=== PATIENT | female | born 1970 | race American Indian/Alaskan Native ===

== ENCOUNTER 2019-02-06 16:01 | Emergency (ER) | payer OTHER ==
[2019-02-06] MEDS ORDERED: DECADRON IM ONE (16:10)
--- NOTE | 2019-02-06 16:10 | Emergency Department Report ---
Blank Doc - Documentation Documentation: This is a 48-year-old female that presents with SOB and wheezing. This initial assessment/diagnostic orders/clinical plan/treatment(s) is/are subject to change based on patient's health status, clinical progression and re- assessment by fellow clinical providers in the ED. Further treatment and workup at subsequent clinical providers discretion. Patient/guardians urged not to elope from the ED as their condition may be serious if not clinically assessed and managed. Initial orders include: 1- Patient sent to [facility] for further evaluation and treatment 2- breathing treatment/steroids
[2019-02-06] MEDS ORDERED: ATROVENT IH ONE (16:11)
[2019-02-06] MEDS ORDERED: PROVENTIL IH ONE (16:11)
[2019-02-06] MEDS ORDERED: DELTASONE PO ONE (16:16)
[2019-02-06] MEDS ORDERED: ZOFRAN ODT PO ONE (16:17)
[2019-02-06] MEDS ORDERED: VIBRAMYCIN PO ONE (16:17)
[2019-02-06] MEDS ORDERED: MAGNESIUM SULFATE 2GM/50ML 2 GM/50 ML BAG IV ONE (16:20)
--- NOTE | 2019-02-06 16:21 | Emergency Department Report ---
Minor Respiratory - HPI Chief Complaint: Dyspnea/Respdistress Stated Complaint: DIFFICULTY BREATHING Time Seen by Provider: 02/06/19 16:09 Duration: 5 Days Pain Location: Chest Severity: moderate Minor Respiratory: Yes Able to Tolerate Fluids, Yes Cough, Yes Shortness of Breath, No Rhinorrhea, No Sore Throat, No Ear Pain, No Sick Contacts, No Hemoptysis, No Chest Pain, No Fever Other History: Patient is a pleasant 41-year-old comes to the ER today with shortness of breath. She has asthma and his round of her medications. Patient is afebrile. Oxygen saturation is normal on room air. She denies purulent sputum. ED Review of Systems ROS: Stated complaint: DIFFICULTY BREATHING Other details as noted in HPI Comment: All other systems reviewed and negative ED Past Medical Hx - Past Medical History Hx Asthma: Yes Additional medical history: fibromyalgia - Surgical History Past Surgical History?: Yes Additional Surgical History: back - Family History Family history: no significant - Social History Smoking Status: Former Smoker Substance Use Type: None - Medications Home Medications: Home Medications Medication Instructions Recorded Confirmed Last Taken Type ALBUTEROL NEB's [Proventil 0.083% 2.5 mg IH TID PRN #1 box 02/06/19 Unknown Rx NEBS] Albuterol Sulfate [Proair 90 mcg IH Q4HR PRN #2 aer.pow.ba 02/06/19 Unknown Rx Respiclick] Azithromycin [Zithromax Z-RUPINDER] 250 mg PO DAILY #6 tablet 02/06/19 Unknown Rx Cetirizine HCl [ZyrTEC] 10 mg PO DAILY #30 capsule 02/06/19 Unknown Rx Fluticasone [Flonase] 1 spray NS QDAY #1 bottle 02/06/19 Unknown Rx Fluticasone/Salmeterol [Advair 1 puff IH BID #1 disk.w.dev 02/06/19 Unknown Rx Diskus 250-50 mcg] predniSONE [Deltasone] 20 mg PO DAILY #5 tablet 02/06/19 Unknown Rx Minor Respiratory Exam - Exam General: Vital signs noted. No distress. Alert and acting appropriately. WDWN patient in NAD VS per RN flow sheet Alert and oriented to person, place and time. S1-S2. No S3 or S4. No systolic or diastolic murmur. No JVD. No pitting edema. WHEEZING BILATERAL ON ADMIT TO [facility] Abdomen soft nontender bowel sounds X4 Moves all extremities well. Mood and affect appropriate. Neurologic: Alert and oriented, no deficits. Musculoskeletal: Unremarkable. ED Course Vital Signs 02/06/19 16:10 Temperature 98.2 F Pulse Rate 93 H Respiratory 22 Rate Blood Pressure 147/89 O2 Sat by Pulse 96 Oximetry ED Medical Decision Making - Medical Decision Making Vital Signs 02/06/19 02/06/19 02/06/19 16:10 16:30 16:43 Temperature 98.2 F Pulse Rate 93 H Pulse Rate [ 90 94 H Bilateral Upper Lobe] Respiratory 22 Rate Respiratory 20 20 Rate [Bilateral Upper Lobe] Blood Pressure 147/89 O2 Sat by Pulse 96 Oximetry ambulatory, no fever, no sputum; ran out of meds no cp sob with wheezing hx asthma. medicated in the ER with improvement dc home with dc plan of care and rx. Pt is to follow up with pcp. dc home without sob or wheezing. - Differential Diagnosis asthma, ae with or without infection Critical care attestation.: If time is entered above; I have spent that time in minutes in the direct care of this critically ill patient, excluding procedure time. ED Disposition Clinical Impression: Asthma with acute exacerbation, URTI (acute upper respiratory infection) Disposition: DC-01 TO HOME OR SELFCARE Is pt being admited?: No Does the pt Need Aspirin: No Condition: Stable Instructions: Asthma (ED) Additional Instructions: DIET TOLERATED MEDS ORDERED TODAY IN ER FOLLOW INSTRUCTIONS ON THE BOTTLE FOLLOW UP PCP WITHIN 48 HOURS TO ENSURE YOU ARE GETTING BETTER ACTIVITY TOLERATED MOTRIN OR TYLENOL FOR PAIN OR FEVER RETURN TO THE ER FOR WORSENING SYMPTOMS NOT RELIEVED BY YOUR MEDICATIONS. Prescriptions: Fluticasone/Salmeterol [Advair Diskus 250-50 mcg] 1 puff IH BID #1 disk.w.dev predniSONE [Deltasone] 20 mg PO DAILY #5 tablet Fluticasone [Flonase] 1 spray NS QDAY #1 bottle Albuterol Sulfate [Proair Respiclick] 90 mcg IH Q4HR PRN #2 aer.pow.ba PRN Reason: Wheezing ALBUTEROL NEB's [Proventil 0.083% NEBS] 2.5 mg IH TID PRN #1 box PRN Reason: Wheezing Azithromycin [Zithromax Z-RUPINDER] 250 mg PO DAILY #6 tablet Cetirizine HCl [ZyrTEC] 10 mg PO DAILY #30 capsule Referrals: MAUREEN COX MD [Primary Care Provider] - 3-5 Days PERLA WILLIAM MD [Staff Physician] - 3-5 Days Time of Disposition: 17:19
[2019-02-06] MEDS ORDERED: SOLU-Medrol IV ONE (17:13)
[2019-02-06 18:56] VITALS: BP 144/72
== END 2019-02-06 18:56 | disposition home or self-care (01) ==
LOC: ED 16:01
DX: J45.901 Unspecified asthma with (acute) exacerbation (principal); J06.9 Acute upper respiratory infection, unspecified; M79.7 Fibromyalgia; Z87.891 Personal history of nicotine dependence
CPT/HCPCS: 94640; 96365; 96375; 99283; J2930; J3475

== ENCOUNTER 2019-02-10 12:56 | Emergency (ER) | payer OTHER ==
[2019-02-10] MEDS ORDERED: ATROVENT IH ONE ×2 (13:05→13:28)
[2019-02-10] MEDS ORDERED: PROVENTIL IH ONE ×2 (13:05→13:28)
[2019-02-10] MEDS ORDERED: DECADRON IM ONE (13:05)
--- NOTE | 2019-02-10 13:07 | Event Note ---
ED Screening Note ED Screening Note: c/o asthma exacerbation does not have rescue medication no productive cough, no fever just having wheezing per pt hx of HTN, is supposed to be on "water pill" has not been taking This initial assessment/diagnostic orders/clinical plan/treatment(s) is/are subject to change based on patients health status, clinical progression and re- assessment by fellow clinical providers in the ED. Further treatment and workup at subsequent clinical providers discretion. Patient/guardian urged not to elope from the ED as their condition may be serious if not clinically assessed and managed. Initial orders include: neb tx, steroids
[2019-02-10] MEDS ORDERED: MORPHINE IV ONE (13:28)
[2019-02-10] MEDS ORDERED: DECADRON IV ONE (13:29)
[2019-02-10 14:37] LABS: BUN/Creatinine Ratio 14; Blood Urea Nitrogen 11 mg/dL (7-17); Calcium 9.1 mg/dL (8.4-10.2); Hemolysis Index 20
[2019-02-10 14:39] LABS: Basophils # (Auto) 0.1 K/mm3 (0.0-0.1); Basophils % (Auto) 0.5 % (0.0-1.8); Eosinophils # (Auto) 0.2 K/mm3 (0.0-0.4); Eosinophils % (Auto) 1.6 % (0.0-4.3); Hematocrit 41.8 % (30.3-42.9); Hemoglobin 14.3 gm/dl (10.1-14.3); Lymphocytes # (Auto) 1.5 K/mm3 (1.2-5.4); Lymphocytes % (Auto) 15.4 % (13.4-35.0); Mean Corpuscular HGB Conc 34 % (30-34); Mean Corpuscular Volume 90 fl (79-97); Monocytes # (Auto) 0.2 K/mm3 (0.0-0.8); Monocytes % (Auto) 1.8 % (0.0-7.3); Platelet Count 232 K/mm3 (140-440); Red Blood Count 4.63 M/mm3 (3.65-5.03); Red Cell Distribution Width 14.4 % (13.2-15.2)
--- NOTE | 2019-02-10 17:27 | Emergency Department Report ---
<SHANAEANDRES - Last Filed: 02/10/19 17:23> ED Asthma HPI - General Chief Complaint: Adult Asthma Stated Complaint: MAYELA Time Seen by Provider: 02/10/19 13:06 Source: patient Mode of arrival: Ambulatory Limitations: No Limitations - History of Present Illness Initial Comments: Patient is a 48-year-old [place] female who has been having asthma exacerbation for the last several days. Patient is here for 5 days ago and was given neb treatment and steroids and the patient states that her symptoms are not improved. She has continued to wheeze at home and now has pain with breathing which she normally does not have with her asthma exacerbations. Patient states that she continued to have a cough is nonproductive as well as wheezing shortness of breath. Has sob worse with exertion - Related Data Previous Rx's Medication Instructions Recorded Last Taken Type ALBUTEROL NEB's [Proventil 0.083% 2.5 mg IH TID PRN #1 box 02/06/19 Unknown Rx NEBS] Albuterol Sulfate [Proair 90 mcg IH Q4HR PRN #2 aer.pow.ba 02/06/19 Unknown Rx Respiclick] Azithromycin [Zithromax Z-RUPINDER] 250 mg PO DAILY #6 tablet 02/06/19 Unknown Rx Cetirizine HCl [ZyrTEC] 10 mg PO DAILY #30 capsule 02/06/19 Unknown Rx Fluticasone [Flonase] 1 spray NS QDAY #1 bottle 02/06/19 Unknown Rx Fluticasone/Salmeterol [Advair 1 puff IH BID #1 disk.w.dev 02/06/19 Unknown Rx Diskus 250-50 mcg] predniSONE [Deltasone] 20 mg PO DAILY #5 tablet 02/06/19 Unknown Rx ALBUTEROL NEB's [Proventil 0.083% 5 mg IH TID PRN #20 neb 02/10/19 Unknown Rx NEBS] Benzonatate [Tessalon Perles] 100 mg PO Q8HR #10 capsule 02/10/19 Unknown Rx traMADol [Ultram] 50 mg PO Q6HR PRN #12 tablet 02/10/19 Unknown Rx Allergies Allergy/AdvReac Type Severity Reaction Status Date / Time No Known Allergies Allergy Verified 02/06/19 16:03 ED Review of Systems Comment: All other systems reviewed and negative ED Past Medical Hx - Past Medical History Previous Medical History?: Yes Hx Asthma: Yes Additional medical history: fibromyalgia - Surgical History Past Surgical History?: Yes Additional Surgical History: back - Social History Smoking Status: Former Smoker Substance Use Type: Alcohol - Medications Home Medications: Home Medications Medication Instructions Recorded Confirmed Last Taken Type ALBUTEROL NEB's [Proventil 0.083% 2.5 mg IH TID PRN #1 box 02/06/19 Unknown Rx NEBS] Albuterol Sulfate [Proair 90 mcg IH Q4HR PRN #2 aer.pow.ba 02/06/19 Unknown Rx Respiclick] Azithromycin [Zithromax Z-RUPINDER] 250 mg PO DAILY #6 tablet 02/06/19 Unknown Rx Cetirizine HCl [ZyrTEC] 10 mg PO DAILY #30 capsule 02/06/19 Unknown Rx Fluticasone [Flonase] 1 spray NS QDAY #1 bottle 02/06/19 Unknown Rx Fluticasone/Salmeterol [Advair 1 puff IH BID #1 disk.w.dev 02/06/19 Unknown Rx Diskus 250-50 mcg] predniSONE [Deltasone] 20 mg PO DAILY #5 tablet 02/06/19 Unknown Rx ALBUTEROL NEB's [Proventil 0.083% 5 mg IH TID PRN #20 neb 02/10/19 Unknown Rx NEBS] Benzonatate [Tessalon Perles] 100 mg PO Q8HR #10 capsule 02/10/19 Unknown Rx traMADol [Ultram] 50 mg PO Q6HR PRN #12 tablet 02/10/19 Unknown Rx ED Physical Exam - General Limitations: No Limitations General appearance: alert, in no apparent distress - Head Head exam: Present: atraumatic, normocephalic - Eye Eye exam: Present: normal appearance, PERRL, EOMI - ENT ENT exam: Present: mucous membranes moist - Neck Neck exam: Present: normal inspection - Respiratory Respiratory exam: Present: respiratory distress, wheezes. Absent: normal lung sounds bilaterally, rales, rhonchi, stridor - Cardiovascular Cardiovascular Exam: Present: normal rhythm, tachycardia, normal heart sounds. Absent: systolic murmur, diastolic murmur, rubs, gallop - GI/Abdominal GI/Abdominal exam: Present: soft, normal bowel sounds. Absent: distended, tenderness, guarding, rebound - Extremities Exam Extremities exam: Present: normal inspection - Back Exam Back exam: Present: normal inspection - Neurological Exam Neurological exam: Present: alert, oriented X3 - Psychiatric Psychiatric exam: Present: normal affect, normal mood - Skin Skin exam: Present: warm, dry, intact, normal color. Absent: rash ED Course - Reevaluation(s) Reevaluation #1: 02/10/19 17:25 Patient had a CTA of the chest ordered to rule out pulmonary embolus as the patient has pain with breathing. Patient's risk factor for PE is smoking. Patient also has a change in her asthma pattern and no relief with her usual treatment. Patient is received hour-long neb treatment is feeling much improved. Her wheezing has improved. Did have a good conversation with the patient regarding the use of neck was machine at home. Patient feels as though she would benefit from this more than her albuterol MDI. If the patient's CT is negative the patient will be discharged home with a nebulizer machine. ED Medical Decision Making - Lab Data Result diagrams: 02/10/19 13:51 02/10/19 13:51 ED Disposition Clinical Impression: URTI (acute upper respiratory infection) Asthma with acute exacerbation Qualifiers: Asthma severity: moderate Asthma persistence: persistent Qualified Code(s): J45.41 - Moderate persistent asthma with (acute) exacerbation Disposition: - TO HOME OR SELFCARE Condition: Stable Instructions: Asthma (ED) Prescriptions: ALBUTEROL NEB's [Proventil 0.083% NEBS] 5 mg IH TID PRN #20 neb PRN Reason: Wheezing Benzonatate [Tessalon Perles] 100 mg PO Q8HR #10 capsule traMADol [Ultram] 50 mg PO Q6HR PRN #12 tablet PRN Reason: Pain Referrals: FLOR SANTIAGO JR, MD [Primary Care Provider] - 3-5 Days <LUIS ALFREDO BURRELL - Last Filed: 02/13/19 06:10> ED Review of Systems ROS: Stated complaint: MAYELA Other details as noted in HPI ED Course Vital Signs 02/10/19 02/10/19 02/10/19 13:00 13:18 13:32 Temperature 98 F Pulse Rate 103 H Pulse Rate [ 122 H 123 H Anterior Bilateral Throughout] Respiratory 22 Rate Respiratory 24 24 Rate [Anterior Bilateral Throughout] Blood Pressure 169/114 Blood Pressure [Right] O2 Sat by Pulse 95 Oximetry 02/10/19 02/10/19 02/10/19 13:34 14:06 18:48 Temperature 98.6 F Pulse Rate 72 Pulse Rate [ 126 H Anterior Bilateral Throughout] Respiratory 20 18 Rate Respiratory 24 Rate [Anterior Bilateral Throughout] Blood Pressure Blood Pressure 154/82 [Right] O2 Sat by Pulse Oximetry 02/10/19 18:49 Temperature 97.8 F Pulse Rate 76 Pulse Rate [ Anterior Bilateral Throughout] Respiratory 18 Rate Respiratory Rate [Anterior Bilateral Throughout] Blood Pressure Blood Pressure 154/82 [Right] O2 Sat by Pulse Oximetry ED Medical Decision Making - Lab Data Result diagrams: 02/10/19 13:51 02/10/19 13:51 - Radiology Data Findings [facility] [address] [place] [address] Cat Scan Report Signed Patient: AYAZ RILEY MR#: [id number] 9 : 1970 Acct:[id number] Age/Sex: 48 / F ADM Date: 02/10/19 Loc: ED Attending Dr: Ordering Physician: ANDRES CASTELLON MD Date of Service: 02/10/19 Procedure(s): CT angio chest Accession Number(s): [id number] cc: ANDRES CASTELLON MD PROCEDURE: CT ANGIO CHEST TECHNIQUE: Computerized tomographic angiography of the chest was performed after the IV injection of iodinated nonionic contrast including image processing. The image data was postprocessed using 2-dimensional multiplanar reformatted (MPR) and 3-dimensional (MIP and/or volume rendered) techniques. Automated exposure control, adjustment of mA and/or kV according to patient size, or iterative reconstruction dose optimization techniques were utilized. CT DOSE LENGTH PRODUCT: 688.2 mGycm HISTORY: acute respiratory distress with pleuritic CP COMPARISONS: None . FINDINGS: Heart and pericardium: Normal. Thoracic aorta: Normal. Pulmonary vasculature: There is suboptimal evaluation of the pulmonary arteries due to phase of contrast-enhancement. No central emboli are seen. Lymph nodes: No enlarged thoracic lymph nodes. Lungs: Normal. Pleural space: No effusion, thickening, or pneumothorax. Musculoskeletal structures: No significant abnormality. Upper abdominal structures: No significant abnormality. IMPRESSION: There is suboptimal evaluation of the pulmonary arteries due to phase of contrast- enhancement. No central emboli are seen. This document is electronically signed by Sara Harris MD., February 10 2019 05:52:32 PM ET Transcribed By: [facility] Dictated By: SARA HARRIS M.D. Electronically Authenticated By: SARA HARRIS M.D. Signed Date/Time: 02/10/19 175 DD/ 16 TD/TT: 02/10/191717 - Medical Decision Making 48-year-old female seen by Dr. Castellon for asthma with socially chest pain was worried about other etiologies for chest pain, so CT of the chest was ordered to rule out any clots. CTA did not reveal any pulmonary emboli. Prescriptions already made out plan was to discharge patient home. Have her to follow-up. We will move forward with his initial plan of care was negative as previously discussed. See the radiology report for more details. Critical care attestation.: If time is entered above; I have spent that time in minutes in the direct care of this critically ill patient, excluding procedure time. ED Disposition Is pt being admited?: No Does the pt Need Aspirin: No
--- NOTE | 2019-02-10 17:54 | Cat Scan Report ---
PROCEDURE: CT ANGIO CHEST TECHNIQUE: Computerized tomographic angiography of the chest was performed after the IV injection of iodinated nonionic contrast including image processing. The image data was postprocessed using 2-di mensional multiplanar reformatted (MPR) and 3-dimensional (MIP and/or volume rendered) techniques. Au tomated exposure control, adjustment of mA and/or kV according to patient size, or iterative reconstr uction dose optimization techniques were utilized. CT DOSE LENGTH PRODUCT: 688.2 mGycm HISTORY: acute respiratory distress with pleuritic CP COMPARISONS: None . FINDINGS: Heart and pericardium: Normal. Thoracic aorta: Normal. Pulmonary vasculature: There is suboptimal evaluation of the pulmonary arteries due to phase of contr ast-enhancement. No central emboli are seen. Lymph nodes: No enlarged thoracic lymph nodes. Lungs: Normal. Pleural space: No effusion, thickening, or pneumothorax. Musculoskeletal structures: No significant abnormality. Upper abdominal structures: No significant abnormality. IMPRESSION: There is suboptimal evaluation of the pulmonary arteries due to phase of contrast-enhanc ement. No central emboli are seen. This document is electronically signed by Sara Harris MD., February 10 2019 05:52:32 PM ET
[2019-02-10 18:49] VITALS: BP 154/82
== END 2019-02-10 18:49 | disposition home or self-care (01) ==
LOC: ED 12:56
DX: J06.9 Acute upper respiratory infection, unspecified (principal); J45.901 Unspecified asthma with (acute) exacerbation; Z98.890 Other specified postprocedural states; Z87.891 Personal history of nicotine dependence; Z87.39 Personal history of other diseases of the musculoskeletal system and connective tissue
CPT/HCPCS: 36415; 71275; 80048; 85025; 94640; 96374; 96375; 99284; J1100; J2270; Q9967

== ENCOUNTER 2019-03-20 18:36 | Emergency (ER) | payer OTHER ==
[2019-03-20] MEDS ORDERED: DECADRON IV ONE (18:49)
--- NOTE | 2019-03-20 18:51 | Emergency Department Report ---
ED Asthma HPI - General Chief Complaint: Adult Asthma Stated Complaint: ASTHMA Source: patient Mode of arrival: Ambulatory Limitations: No Limitations - History of Present Illness Initial Comments: 48-year-old female with a history of asthma presents to ED complaining of the maximum assist patient does started 3 days ago. Patient states her medications are not working so she came to the ED today to be evaluated due to the fact that she is having some pain with coughing. Patient states that she has not had a chance to follow up with the specialist yet. MD Complaint: "asthma attack" Asthma History: childhood onset Severity: moderate Context: exercise Associated Symptoms: dry cough - Related Data Home Medications Medication Instructions Recorded Confirmed Last Taken Buspirone HCl [busPIRone] 15 mg PO QDAY 03/20/19 03/20/19 03/20/19 Omeprazole 40 mg PO QDAY 03/20/19 03/20/19 03/19/19 Previous Rx's Medication Instructions Recorded Last Taken Type Albuterol Sulfate [Proair 90 mcg IH Q4HR PRN #2 aer.pow.ba 02/06/19 03/20/19 Rx Respiclick] Cetirizine HCl [ZyrTEC] 10 mg PO DAILY #30 capsule 02/06/19 03/20/19 Rx Fluticasone [Flonase] 1 spray NS QDAY #1 bottle 02/06/19 03/20/19 Rx ALBUTEROL NEB's [Proventil 0.083% 5 mg IH TID PRN #20 neb 02/10/19 03/20/19 Rx NEBS] traMADol [Ultram] 50 mg PO Q6HR PRN #12 tablet 02/10/19 03/20/19 Rx ALBUTEROL NEB's [Proventil 0.083% 2.5 mg IH TID PRN #1 box 03/20/19 Unknown Rx NEBS] Acetamin/Codeine 120-12Mg/5 ml 5 ml PO TID #60 ml 03/20/19 Unknown Rx [Tylenol/Codeine 120-12 mg/5 ml] Benzonatate [Tessalon Perles] 100 mg PO Q8HR #10 capsule 03/20/19 Unknown Rx Fluticasone/Salmeterol [Advair 1 puff IH BID #1 disk.w.dev 03/20/19 Unknown Rx Diskus 250-50 mcg] predniSONE [Deltasone] 20 mg PO DAILY #5 tablet 03/20/19 Unknown Rx Allergies Allergy/AdvReac Type Severity Reaction Status Date / Time No Known Allergies Allergy Verified 02/06/19 16:03 ED Review of Systems ROS: Stated complaint: ASTHMA Other details as noted in HPI Comment: All other systems reviewed and negative ED Past Medical Hx - Past Medical History Previous Medical History?: Yes Hx Asthma: Yes Additional medical history: fibromyalgia - Surgical History Past Surgical History?: Yes Additional Surgical History: back - Social History Smoking Status: Former Smoker Substance Use Type: Alcohol - Medications Home Medications: Home Medications Medication Instructions Recorded Confirmed Last Taken Type Albuterol Sulfate [Proair 90 mcg IH Q4HR PRN #2 aer.pow.ba 02/06/19 03/20/19 03/20/19 Rx Respiclick] Cetirizine HCl [ZyrTEC] 10 mg PO DAILY #30 capsule 02/06/19 03/20/19 03/20/19 Rx Fluticasone [Flonase] 1 spray NS QDAY #1 bottle 02/06/19 03/20/19 03/20/19 Rx ALBUTEROL NEB's [Proventil 0.083% 5 mg IH TID PRN #20 neb 02/10/19 03/20/19 03/20/19 Rx NEBS] traMADol [Ultram] 50 mg PO Q6HR PRN #12 tablet 02/10/19 03/20/19 03/20/19 Rx ALBUTEROL NEB's [Proventil 0.083% 2.5 mg IH TID PRN #1 box 03/20/19 Unknown Rx NEBS] Acetamin/Codeine 120-12Mg/5 ml 5 ml PO TID #60 ml 03/20/19 Unknown Rx [Tylenol/Codeine 120-12 mg/5 ml] Benzonatate [Tessalon Perles] 100 mg PO Q8HR #10 capsule 03/20/19 Unknown Rx Buspirone HCl [busPIRone] 15 mg PO QDAY 03/20/19 03/20/19 03/20/19 History Fluticasone/Salmeterol [Advair 1 puff IH BID #1 disk.w.dev 03/20/19 Unknown Rx Diskus 250-50 mcg] Omeprazole 40 mg PO QDAY 03/20/19 03/20/19 03/19/19 History predniSONE [Deltasone] 20 mg PO DAILY #5 tablet 03/20/19 Unknown Rx ED Physical Exam - General Limitations: No Limitations General appearance: alert, in no apparent distress - Head Head exam: Present: atraumatic, normocephalic - Eye Eye exam: Present: normal appearance - ENT ENT exam: Present: mucous membranes moist - Neck Neck exam: Present: normal inspection - Respiratory Respiratory exam: Present: normal lung sounds bilaterally, wheezes. Absent: respiratory distress, rales, rhonchi, chest wall tenderness, accessory muscle use - Cardiovascular Cardiovascular Exam: Present: regular rate, normal rhythm. Absent: systolic murmur, diastolic murmur, rubs, gallop - GI/Abdominal GI/Abdominal exam: Present: soft, normal bowel sounds - Extremities Exam Extremities exam: Present: normal inspection - Back Exam Back exam: Present: normal inspection - Neurological Exam Neurological exam: Present: alert, oriented X3 - Psychiatric Psychiatric exam: Present: normal affect, normal mood - Skin Skin exam: Present: warm, dry, intact, normal color. Absent: rash ED Course Vital Signs 03/20/19 20:45 Temperature 98.8 F Pulse Rate 87 Respiratory 17 Rate Blood Pressure 107/65 [Right] O2 Sat by Pulse 97 Oximetry ED Medical Decision Making - Radiology Data Radiology results: report reviewed, image reviewed COMPARISON: 07/06/2018 FINDINGS: SUPPORT DEVICES: None. HEART / MEDIASTINUM: No significant abnormality. LUNGS / PLEURA: No significant pulmonary or pleural abnormality. No pneumothorax. ADDITIONAL FINDINGS: No significant additional findings. IMPRESSION: No significant acute abnormality Signer Name: Chris Garcia MD Signed: 03/20/2019 7:32 PM Workstation Name: [id number] Transcribed By: ROQUE Dictated By: Chris Garcia MD Electronically Authenticated By: Chris Garcia MD Signed Date/Time: 03/20/191931 - Medical Decision Making 48-year-old female presents with asthma exacerbation ED course: Patient received a breathing treatment, prednisone, cough suppressant in the ED. Chest x-ray ordered, chest x-ray shows no acute findings. Patient had no respiratory distress in the ED. Post treatment evaluation: No wheezing heard, no use of accessory muscles, I discussed with the patient to follow up with her primary care physician. I discussed with the patient will be going home on with albuterol inhaler as well as nebulizer Vital signs are normalized, patient is saturation at 97% on room air. I discussed with the patient is symptoms worsen to return to ED immediately. Critical care attestation.: If time is entered above; I have spent that time in minutes in the direct care of this critically ill patient, excluding procedure time. ED Disposition Clinical Impression: Asthma Disposition: DC-01 TO HOME OR SELFCARE Is pt being admited?: No Does the pt Need Aspirin: No Condition: Stable Instructions: Asthma (ED), Reactive Airways Disease (ED) Additional Instructions: Make sure to follow up with the primary care physician as discussed. Take all your medications as you've been prescribed. If you have any worsening symptoms or develop new symptoms please return to ED immediately. Prescriptions: Fluticasone/Salmeterol [Advair Diskus 250-50 mcg] 1 puff IH BID #1 disk.w.dev predniSONE [Deltasone] 20 mg PO DAILY #5 tablet ALBUTEROL NEB's [Proventil 0.083% NEBS] 2.5 mg IH TID PRN #1 box PRN Reason: Wheezing Benzonatate [Tessalon Perles] 100 mg PO Q8HR #10 capsule Acetamin/Codeine 120-12Mg/5 ml [Tylenol/Codeine 120-12 mg/5 ml] 5 ml PO TID #60 ml Referrals: PRIMARY CARE, [Primary Care Provider] - 3-5 Days [facility] [Provider Group] - 3-5 Days Forms: Accompanied Note, Work/School Release Form(ED) Time of Disposition: 20:36
--- NOTE | 2019-03-20 19:36 | XRay Report ---
CHEST 2 VIEWS 1927 INDICATION / CLINICAL INFORMATION: sob. COMPARISON: 07/06/2018 FINDINGS: SUPPORT DEVICES: None. HEART / MEDIASTINUM: No significant abnormality. LUNGS / PLEURA: No significant pulmonary or pleural abnormality. No pneumothorax. ADDITIONAL FINDINGS: No significant additional findings. IMPRESSION: No significant acute abnormality Signer Name: Chris Garcia MD Signed: 03/20/2019 7:32 PM Workstation Name: [id number]
[2019-03-20] MEDS ORDERED: TYLENOL/CODEINE PO ONE (20:20)
[2019-03-20 20:52] VITALS: BP 107/65
== END 2019-03-20 21:35 | disposition home or self-care (01) ==
LOC: ED 18:36
DX: J45.909 Unspecified asthma, uncomplicated (principal); Z98.890 Other specified postprocedural states; Z87.891 Personal history of nicotine dependence; Z79.899 Other long term (current) drug therapy
CPT/HCPCS: 71046; 82805; 96374; 99283; J1100

== ENCOUNTER 2022-02-07 09:42 | Outpatient (CLI) | payer OTHER ==
--- NOTE | 2022-02-07 10:37 | XRay Report ---
Lumbar spine 3 views INDICATION: Back pain FINDINGS: Postoperative change with hardware at L4-5 and L5-S1. Alignment appears normal. Sacrum and sacroiliac joints appear normal. IMPRESSION: Postoperative change. No acute findings. Signer Name: Lorenzo Pond MD Signed: 02/07/2022 10:33 AM Workstation Name: [id number]
== END 2022-02-07 09:43 | disposition home or self-care (01) ==
LOC: XRAY 09:42
PROVIDERS: ATTEND Internal Medicine
DX: M54.50 Low back pain, unspecified (principal); Z98.1 Arthrodesis status
CPT/HCPCS: 72100

== ENCOUNTER 2022-03-14 09:34 | Outpatient (CLI) | payer OTHER ==
--- NOTE | 2022-03-14 10:38 | XRay Report ---
XR hips BILAT 2V w/pelvis INDICATION / CLINICAL INFORMATION: BILATERAL HIP PAIN. COMPARISON: None available. FINDINGS: BONES/JOINT(S): No acute fracture or subluxation. No significant degenerative changes. No focal bone erosions or focal osteopenia to suggest inflammatory arthropathy. SOFT TISSUES: No significant abnormality. ADDITIONAL FINDINGS: None. Signer Name: Loi Sesay MD Signed: 03/14/2022 10:33 AM Workstation Name: [id number]
--- NOTE | 2022-03-14 10:48 | XRay Report ---
Bilateral knees INDICATION: Knee pain FINDINGS: Alignment appears normal. There is patellofemoral degenerative change bilaterally with join t space narrowing left slightly greater than right. There may be a small effusion in the right knee. No acute fracture is definite seen. Small sclerotic lesion within the metadiaphyseal region of the di stal left femur could represent nonossifying fibroma. This area measures 2.3 x 1.1 cm. Signer Name: Lorenzo Pond MD Signed: 03/14/2022 10:43 AM Workstation Name: [id number]
--- NOTE | 2022-03-14 10:55 | XRay Report ---
XR shoulder BILAT 2+V INDICATION / CLINICAL INFORMATION: BILATERAL SHOULDER PAIN. COMPARISON: None available. FINDINGS: BONES/JOINT(S): No acute fracture or subluxation. No significant degenerative changes. No focal bone erosions or focal osteopenia to suggest inflammatory arthropathy. SOFT TISSUES: No significant abnormality. ADDITIONAL FINDINGS: None. Signer Name: Loi Sesay MD Signed: 03/14/2022 10:50 AM Workstation Name: [id number]
== END 2022-03-14 09:35 | disposition home or self-care (01) ==
LOC: XRAY 09:34
PROVIDERS: ATTEND Internal Medicine
DX: M17.0 Bilateral primary osteoarthritis of knee (principal); M25.512 Pain in left shoulder; M25.511 Pain in right shoulder; M25.551 Pain in right hip; M25.552 Pain in left hip
CPT/HCPCS: 73521